=== PATIENT | male | born 1955 | race Caucasian/White ===

== ENCOUNTER 2016-07-29 05:47 | Emergency (ER) | payer SELFPAY ==
[~2016-07-29 05:47] MED LIST: HYDR-3535 PO; IBUP600T26 PO
[2016-07-29 05:48] VITALS: BP 139/77; PULSE 83; RESP 18; TEMP 97.8; O2SAT 98
[2016-07-29 07:04] VITALS: BP 143/79; PULSE 74; RESP 10; O2SAT 97
[2016-07-29 07:11] VITALS: BP 133/82; PULSE 76; RESP 14; TEMP 98.2; O2SAT 96
--- NOTE | 2016-07-29 07:12 | PD ---
HPI Chief Complaint: Oral / Dental Pain or Problem Time Seen by Provider: 07:12 Travel History International Travel<30 days: No Contact w/Intl Traveler<30days: No Traveled to known affect area: No History of Present Illness HPI 61-year-old male presents to our department with several day history of left lower and and swelling which has worsened in the last 24 hours. Patient denies fever, chills, or other symptoms. He denies spontaneous drainage in the area. He has no difficulty swallowing or significant throat or neck pain. He is currently 6 out of 10. He has no known drug allergies. 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) Seizures: Yes (related to hypoglycemia per patient) Social History Alcohol Use: Yes (OCCASIONAL) Tobacco Use: Yes (1 PPD) Substance Use: No (HX MARIJUANA) Allergies-Medications (Allergen,Severity, Reaction): Coded Allergies: No Known Allergies (Unverified , 07/29/16) Reported Meds & Prescriptions Reported Meds & Active Scripts Active Ibuprofen 800 Mg Tab 800 Mg PO Q8H PRN Amoxicillin 875 Mg Tab 875 Mg PO BID Review of Systems Except as stated in HPI: all other systems reviewed are Neg General / Constitutional: No: Fever Eyes: No: Visual changes HENT: Positive: Dental Difficulties, No: Headaches, Gingival Bleeding, Ear Discharge, Earache Cardiovascular: No: Chest Pain or Discomfort Respiratory: No: Shortness of Breath Gastrointestinal: No: Abdominal Pain Genitourinary: No: Dysuria Musculoskeletal: No: Pain Skin: No Rash Neurologic: No: Weakness Psychiatric: No: Depression Endocrine: No: Polydipsia Hematologic/Lymphatic: No: Easy Bruising Physical Exam Narrative GENERAL: Patient appears in no acute distress. SKIN: Warm and dry. Normal color. Normal turgor. Patient has swelling to the medial left lower jaw. HEAD: Atraumatic. Normocephalic. EYES: Pupils equal and round. No scleral icterus. No injection or drainage. ENT: No nasal bleeding or discharge. Mucous membranes pink and moist. Patient has poor dental health with multiple caries. Mild to moderate swelling to the left lower jawline along the gingiva without significant abscess. Pharynx is clear. Airway is patent. No Vladimir's angina. TMs are clear bilaterally. NECK: Trachea midline. Nontender without significant lymphadenopathy. CARDIOVASCULAR: Regular rate and rhythm. RESPIRATORY: No accessory muscle use. Clear to auscultation. Breath sounds equal bilaterally. MUSCULOSKELETAL: Extremities without clubbing, cyanosis, or edema. No obvious deformities. NEUROLOGICAL: Awake and alert. No obvious cranial nerve deficits. Motor grossly within normal limits. Five out of 5 muscle strength in the arms and legs. Normal speech. PSYCHIATRIC: Appropriate mood and affect; insight and judgment normal. Data Data Last Documented VS Vital Signs Date Time Temp Pulse Resp B/P Pulse Ox O2 Delivery O2 Flow Rate FiO2 07/29/16 07:11 98.2 76 14 133/82 96 Room Air Orders Amoxicillin (Trimox) (07/29/16 07:30) Ibuprofen (Motrin) (07/29/16 07:30) [facility] Medical Decision Making Medical Screen Exam Complete: Yes Emergency Medical Condition: Yes Differential Diagnosis Dental pain. Dental caries. Dental abscess. Narrative Course Patient is given his first dose of amoxicillin 875 by mouth as well as ibuprofen 800 mg by mouth. Patient is continued on amoxicillin 875 twice a day times Patient is given a prescription for ibuprofen 800mg 3 times a day as needed #30. Patient is instructed to follow with a dental practitioner as soon as possible. Diagnosis Primary Impression: Dental abscess Referrals: Dentist Patient Instructions: Dental Abscess (ED), General Instructions Additional Instructions: Patient is given his first dose of amoxicillin 875 by mouth as well as ibuprofen 800 mg by mouth. Patient is continued on amoxicillin 875 twice a day times Patient is given a prescription for ibuprofen 800mg 3 times a day as needed #30. Patient is instructed to follow with a dental practitioner as soon as possible. Med/Other Pt SpecificInfo: Prescription(s) given Scripts Ibuprofen 800 Mg [id number] Mg PO Q8H PRN (Pain/Inflammation) #30 TAB Prov:Felipe Rosa MD 07/29/16 Amoxicillin 875 Mg [id number] Mg PO BID #20 TAB Prov:Felipe Rosa MD 07/29/16 Disposition: 01 DISCHARGE HOME Condition: Stable Jas English Jul 29, 2016 07:12
[2016-07-29] MEDS ORDERED: IBUP800T23 PO (07:18)
[2016-07-29] MEDS ORDERED: AMOX875T PO (07:18)
[2016-07-29] MEDS ORDERED: AMOXICILLIN 875 MG TAB PO ONE (07:30)
[2016-07-29] MEDS ORDERED: IBUPROFEN 800 MG TAB PO ONE (07:30)
== END 2016-07-29 08:04 | disposition home or self-care (01) ==
LOC: NEPD 05:47
DX: K04.7 Periapical abscess without sinus (principal); F17.210 Nicotine dependence, cigarettes, uncomplicated
CPT/HCPCS: 99283